=== PATIENT | female | born 1980 | race American Indian/Alaskan Native ===

== ENCOUNTER 2016-08-27 13:16 | Emergency (ER) | payer SELFPAY ==
[2016-08-27 15:22] LABS: Hematocrit 33.3 % (30.3-42.9); Hemoglobin 11.2 gm/dl (10.1-14.3); Mean Corpuscular HGB Conc 34 % (30-34); Mean Corpuscular Hemoglobin 26 pg (28-32); Mean Corpuscular Volume 78 fl (79-97); Platelet Count 299 K/mm3 (140-440); Red Blood Count 4.26 M/mm3 (3.65-5.03); White Blood Count 9.6 K/mm3 (4.5-11.0)
--- NOTE | 2016-08-27 15:32 | Emergency Department Report ---
ED Female HPI - General Chief complaint: Vaginal Bleeding Stated complaint: POSS MISCARRIAGE Time Seen by Provider: 08/27/16 14:39 Source: patient Mode of arrival: Ambulatory Limitations: No Limitations - History of Present Illness Initial comments: 36-year-old female presents to the hospital with complaints of vaginal bleeding in . This is patient's second he had one premature child that at 3 months of age last year. LMP 07/14/2016 day for patient is approximately 6 weeks and 2 days by dates. She went to her clinic yesterday about 11 AM and then by 4 PM yesterday she developed vaginal bleeding. She was seen at [facility] yesterday and beta hCG was 17 and received ultrasound. Diagnosis threatened . Bleeding worsened today and patient has used bypass this morning. Positive abdominal pelvic pressure that is mild to moderate reported with associated lightheadedness. - Related Data Home Medications Medication Instructions Recorded Confirmed Last Taken No Known Home Medications [No 08/09/16 08/09/16 Unknown Reported Home Medications] Previous Rx's Medication Instructions Recorded Last Taken Type hydrOXYzine HCL [Atarax] 25 mg PO Q6HR PRN #20 tablet 08/09/16 Unknown Rx Allergies Allergy/AdvReac Type Severity Reaction Status Date / Time No Known Allergies Allergy Verified 12/10/15 10:13 ED Review of Systems ROS: Stated complaint: POSS MISCARRIAGE Other details as noted in HPI Comment: All other systems reviewed and negative Other: Constitutional: No fevers chills Eyes: No eye pain visual changes ENT: No ear pain or throat pain Neck: Denies pain Respiratory: Denies cough wheezing shortness of breath Cardiovascular: Denies chest pain, palpitations, syncope GI: Denies nausea, vomiting, diarrhea : Denies dysuria Musculoskeletal: Denies back pain Skin: Denies rash, lesions Neurologic: Denies headache, numbness, weakness Psychiatric: Denies suicidal ideation, hallucinations ED Past Medical Hx - Past Medical History Hx Congestive Heart Failure: No Hx Diabetes: No Hx Asthma: No Hx COPD: No Additional medical history: FIBROIDS,anemia and sickle cell trait. Herpes(?) - Surgical History Additional Surgical History: BREAST - Social History Smoking Status: Current Every Day Smoker Substance Use Type: Marijuana - Medications Home Medications: Home Medications Medication Instructions Recorded Confirmed Last Taken Type No Known Home Medications [No 08/09/16 08/09/16 Unknown History Reported Home Medications] hydrOXYzine HCL [Atarax] 25 mg PO Q6HR PRN #20 tablet 08/09/16 Unknown Rx ED Physical Exam - General Limitations: No Limitations - Other Other exam information: General: No limitations, patient is alert in no acute distress Head exam: Atraumatic, normocephalic Eyes exam: Normal appearance, pupils equal reactive to light, extraocular movements intact ENT: Moist mucous membrane, normal oropharynx Neck exam: Normal inspection, full range of motion, no meningismus nontender Respiratory exam: Clear to auscultation bilateral, no wheezes, rales, crackles Cardiovascular: Normal rate and rhythm, normal heart sounds Abdomen: Soft, nondistended, mild suprapubic tenderness, with normal bowel sounds, no rebound, or guarding : No clots and minimal active bleeding in the vault. Cervical os closed without CMT or adnexal tenderness Extremity: Full range of motion normal inspection no deformity Back: Normal Inspection, full range of motion, no tenderness Neurologic: Alert, oriented x3, cranial nerves intact, no motor or sensory deficit Psychiatric: normal affect, normal mood Skin: Warm, dry, intact ED Course Vital Signs 08/27/16 08/27/16 08/27/16 13:55 17:19 17:21 Temperature 98.8 F Pulse Rate 79 97 H Respiratory 16 16 16 Rate Blood Pressure 131/85 125/81 [Right] O2 Sat by Pulse 100 99 99 Oximetry - Reevaluation(s) Reevaluation #1: 08/27/16 15:32 Patient declined Tylenol offer for pain - Consultations Consultation #1: 08/27/16 17:36 case d/w DR. Miguel, agree with f/u planning likely miscarriage ED Medical Decision Making - Lab Data Result diagrams: 08/27/16 15:08 08/27/16 15:08 Lab Results 08/27/16 08/27/16 08/27/16 Range/Units 15:08 15:08 15:08 WBC 9.6 (4.5-11.0) K/mm3 RBC 4.26 (3.65-5.03) M/mm3 Hgb 11.2 (10.1-14.3) gm/dl Hct 33.3 (30.3-42.9) % MCV 78 L (79-97) fl MCH 26 L (28-32) pg MCHC 34 (30-34) % RDW 26.0 H (13.2-15.2) % Plt Count 299 (140-440) K/mm3 Sodium 141 (137-145) mmol/L Potassium 4.3 (3.6-5.0) mmol/L Chloride 102.6 (98-107) mmol/L Carbon Dioxide 22 (22-30) mmol/L Anion Gap 21 mmol/L BUN 9 (7-17) mg/dL Creatinine 0.8 (0.7-1.2) mg/dL Estimated GFR > 60 ml/min BUN/Creatinine Ratio 11.25 % Glucose 86 (65-100) mg/dL Calcium 9.1 (8.4-10.2) mg/dL HCG, Quant 11.30 H (0-4) mIU/mL Blood Type Ord Rhogam Gestat Weeks WEEKS 08/27/16 Range/Units 15:08 WBC (4.5-11.0) K/mm3 RBC (3.65-5.03) M/mm3 Hgb (10.1-14.3) gm/dl Hct (30.3-42.9) % MCV (79-97) fl MCH (28-32) pg MCHC (30-34) % RDW (13.2-15.2) % Plt Count (140-440) K/mm3 Sodium (137-145) mmol/L Potassium (3.6-5.0) mmol/L Chloride (98-107) mmol/L Carbon Dioxide (22-30) mmol/L Anion Gap mmol/L BUN (7-17) mg/dL Creatinine (0.7-1.2) mg/dL Estimated GFR ml/min BUN/Creatinine Ratio % Glucose (65-100) mg/dL Calcium (8.4-10.2) mg/dL HCG, Quant (0-4) mIU/mL Blood Type A POSITIVE Ord Rhogam Gestat Weeks Rh pos WEEKS - Radiology Data Radiology results: report reviewed trans vag/ob us: No iup, fibroid - Medical Decision Making Plan to d/c home with monomer recovery operator f/u for miscarriage. She does not require Rhogam - Differential Diagnosis miscarriage, ectopic, threatened Critical Care Time: No Critical care attestation.: If time is entered above; I have spent that time in minutes in the direct care of this critically ill patient, excluding procedure time. ED Disposition Clinical Impression: Miscarriage Fibroid uterus Qualifiers: Uterine leiomyoma location: unspecified location Qualified Code(s): D25.9 - Leiomyoma of uterus, unspecified Disposition: DISCHARGED TO HOME OR SELFCARE Is pt being admited?: No Does the pt Need Aspirin: No Condition: Stable Instructions: Spontaneous Miscarriage (ED) Additional Instructions: Baby hormone level i.e. beta hCG is decreasing compared to yesterday. Today it is 11.3 and there are no signs of on your ultrasound. You are Likely having a miscarriage. Follow-up with the TOPOLOGY PROFESSOR doctor provided. Return if symptoms worsen as indicated by discharge instructions. Referrals: EMILE MIGUEL MD [Staff Physician] - 3-5 Days Time of Disposition: 17:38
[2016-08-27 15:43] LABS: Anion Gap 21 mmol/L; BUN/Creatinine Ratio 11.25; Blood Urea Nitrogen 9 mg/dL (7-17); Calcium 9.1 mg/dL (8.4-10.2); Carbon Dioxide 22 mmol/L (22-30); Chloride 102.6 mmol/L (98-107); Glucose 86 mg/dL (65-100); Potassium 4.3 mmol/L (3.6-5.0); Sodium 141 mmol/L (137-145)
--- NOTE | 2016-08-27 16:42 | Ultrasound Report ---
ULTRASOUND OB LESS THAN 14 WEEKS - TRANSABDOMINAL AND TRANSVAGINAL INDICATION: Vaginal bleeding, . Serum beta-hCG of 11.3 units. COMPARISON: 01/18/2016 pelvic ultrasound. FINDINGS: Transabdominal and transvaginal pelvic sonography performed in this patient with LMP of 07/14/2016 and estimated menstrual age of 6 weeks and 2 days. An anteverted uterus measuring approximately 14.7 x 8.1 x 9.6 cm again heterogeneous with few dominant fibroids as follows: 1. A lower uterine segment/cervical fibroid posteriorly is approximately 5.7 x 4.5 x 4.6 cm, endovaginal image 7. 2. A partially calcified fibroid towards the right is approximately 3 x 2.7 x 2.8 cm, endovaginal image 14. 3. At least 2 other smaller fibroids identified, approximately 2.5 cm on the left, endovaginal image 10 and approximately 2.7 cm on the right, endovaginal image 16. Endometrial thickness of approximately 1.7 cm towards the fundus on endovaginal image 4. Small pelvic free fluid. Right ovary is 4.6 x 1.7 x 4.7 cm transabdominally while the left ovary approximately 3.2 x 2.9 x 1.4 cm transvaginally. CONCLUSION: 1. No sonographic evidence of a viable intrauterine gestation at this time with myomatous uterus again noted, as described. 2. Both ovaries identified, as above. Please also correlate clinically, with serial serum beta-hCG values and/or followup sonogram, as warranted. Thank you for the opportunity to participate in this patient's care.
[2016-08-27 17:21] VITALS: BP 125/81
== END 2016-08-27 17:46 | disposition home or self-care (01) ==
LOC: ED 13:16
DX: O03.9 Complete or unspecified spontaneous abortion without complication (principal); D25.9 Leiomyoma of uterus, unspecified; D64.9 Anemia, unspecified; F17.200 Nicotine dependence, unspecified, uncomplicated; F12.90 Cannabis use, unspecified, uncomplicated
CPT/HCPCS: 36415; 76801; 76817; 80048; 84702; 85027; 86900; 86901

== ENCOUNTER 2016-11-10 00:23 | Emergency (ER) | payer MEDICAID ==
[2016-11-10 01:01] VITALS: BP 114/80
[2016-11-10 01:55] LABS: Hematocrit 30.9 % (30.3-42.9); Hemoglobin 10.4 gm/dl (10.1-14.3); Mean Corpuscular HGB Conc 34 % (30-34); Mean Corpuscular Hemoglobin 27 pg (28-32); Mean Corpuscular Volume 81 fl (79-97); Platelet Count 299 K/mm3 (140-440); Red Blood Count 3.83 M/mm3 (3.65-5.03); Red Cell Distribution Width 16.2 % (13.2-15.2); White Blood Count 7.7 K/mm3 (4.5-11.0)
[2016-11-10 02:00] LABS: Anion Gap 17 mmol/L; Blood Urea Nitrogen 14 mg/dL (7-17); Calcium 8.9 mg/dL (8.4-10.2); Carbon Dioxide 22 mmol/L (22-30); Chloride 100.8 mmol/L (98-107); Glucose 96 mg/dL (65-100); Potassium 4.1 mmol/L (3.6-5.0); Sodium 136 mmol/L (137-145)
[2016-11-10 03:32] LABS: Anisocytosis 1+; Basophils % (Manual) 0 % (0.0-1.8); Blastocytes % (Manual) 0 %; Diff Status Complete; Eosinophils % (Manual) 0 % (0.0-4.3)
--- NOTE | 2016-11-11 00:41 | ED Elopement Review ---
ED Pt Elopement review - Results review Lab results: Laboratory Tests 11/10/16 11/10/16 11/10/16 01:22 01:22 03:52 WBC 7.7 RBC 3.83 Hgb 10.4 Hct 30.9 MCV 81 MCH 27 L MCHC 34 RDW 16.2 H Plt Count 299 Add Manual Diff Complete Total Counted 100 Seg Neuts % (Manual) 67.0 Band Neutrophils % 0 Lymphocytes % (Manual) 31.0 Reactive Lymphs % (Man) 0 Monocytes % (Manual) 2.0 Eosinophils % (Manual) 0 Basophils % (Manual) 0 Metamyelocytes % 0 Myelocytes % 0 Promyelocytes % 0 Blast Cells % 0 Nucleated RBC % Not Reportable Seg Neutrophils # Man 5.2 Band Neutrophils # 0.0 Lymphocytes # (Manual) 2.4 Abs React Lymphs (Man) 0.0 Monocytes # (Manual) 0.2 Eosinophils # (Manual) 0.0 Basophils # (Manual) 0.0 Metamyelocytes # 0.0 Myelocytes # 0.0 Promyelocytes # 0.0 Blast Cells # 0.0 WBC Morphology Not Reportable Hypersegmented Neuts Not Reportable Hyposegmented Neuts Not Reportable Hypogranular Neuts Not Reportable Smudge Cells Not Reportable Toxic Granulation Not Reportable Toxic Vacuolation Not Reportable Dohle Bodies Not Reportable Pelger-Huet Anomaly Not Reportable Ajit Rods Not Reportable Platelet Estimate Appears normal Clumped Platelets Not Reportable Plt Clumps, EDTA Not Reportable Large Platelets Not Reportable Giant Platelets Not Reportable Platelet Satelliting Not Reportable Plt Morphology Comment Not Reportable RBC Morphology Not Reportable Dimorphic RBCs Not Reportable Polychromasia Not Reportable Hypochromasia Not Reportable Poikilocytosis Not Reportable Anisocytosis 1+ Microcytosis Not Reportable Macrocytosis Not Reportable Spherocytes Not Reportable Pappenheimer Bodies Not Reportable Sickle Cells Not Reportable Target Cells Not Reportable Tear Drop Cells Not Reportable Ovalocytes Not Reportable Helmet Cells Not Reportable [place] Bodies Not Reportable [place] Rings Not Reportable Kiki Cells Not Reportable Bite Cells Not Reportable Crenated Cell Not Reportable Elliptocytes Not Reportable Acanthocytes (Spur) Not Reportable Rouleaux Not Reportable Hemoglobin C Crystals Not Reportable Schistocytes Not Reportable Malaria parasites Not Reportable Jomar Bodies Not Reportable Hem Pathologist Commnt No Sodium 136 L Potassium 4.1 Chloride 100.8 Carbon Dioxide 22 Anion Gap 17 BUN 14 Creatinine 1.0 Estimated GFR > 60 BUN/Creatinine Ratio 14.00 Glucose 96 Calcium 8.9 Troponin T < 0.010 < 0.010 - Call Back decision Pt Call Back Decision: No action required
== END 2016-11-10 01:40 | disposition left against medical advice (07) ==
LOC: ED 00:23
DX: R07.89 Other chest pain (principal); R20.0 Anesthesia of skin; Z53.21 Procedure and treatment not carried out due to patient leaving prior to being seen by health care provider
CPT/HCPCS: 36415; 80048; 84484; 85007; 85025; 93005; 93010